=== PATIENT | female | born 1950 | race African-American/Black ===

== ENCOUNTER 2016-04-27 02:15 | Emergency (ER) | payer OTHER, MEDICAID ==
[~2016-04-27] VITALS: Ht 165.1 cm; Wt 59.9 kg
[~2016-04-27 02:15] MED LIST: CYCLOBENZAPRINE10 MG ORAL; IBUPROFEN600 MG ORAL
[2016-04-27] MEDS ORDERED: Ketorolac 30mg Inj IV ONE (02:45)
[2016-04-27 03:03] LABS: MEAN CORPUSCULAR VOLUME 88 FL (80-99); MEAN PLATELET VOLUME 7.7 FL (6.5-10.1); PLATELET COUNT 339 K/UL (150-450); RED BLOOD COUNT 4.26 M/UL (4.20-5.40); RED CELL DISTRIBUTION WIDTH 12.8 % (11.6-14.8); WHITE BLOOD COUNT 15.3 K/UL (4.8-10.8)
[2016-04-27 03:11] VITALS: BP 162/71
[2016-04-27 03:14] LABS: APPEARANCE,URINE CLEAR; KETONES,URINE NEGATIVE (NEGATIVE); LEUKOCYTE ESTERASE ,URINE NEGATIVE (NEGATIVE); NITRITE,URINE NEGATIVE (NEGATIVE); PH,URINE 8 (4.5-8.0); PROTEIN,URINE 1+ (NEGATIVE); UROBILINOGEN,URINE NORMAL MG/DL (0.0-1.0)
[2016-04-27 03:18] LABS: ALANINE AMINOTRANSFERASE 20 U/L (3-33); ALBUMIN/GLOBULIN RATIO 1.3 (1.0-2.7); ANION GAP 21 (5-15); ASPARTATE AMINO TRANSFERASE 26 U/L (5-40); CARBON DIOXIDE 23 mEQ/L (20-30); CHLORIDE 81 mEQ/L (98-107); CREATININE 0.7 mg/dL (0.5-0.9); GLOMERULAR FILTRATION RATE > 60 mL/min (>60); HEMOLYSIS 2; LIPASE 13 U/L (< 60); POTASSIUM 3.6 mEQ/L (3.4-4.9); SODIUM 125 mEQ/L (135-145); TOTAL PROTEIN 7.6 g/dL (6.6-8.7)
[2016-04-27] MEDS ORDERED: Hydromorphone 0.5mg/0.5ml inj IVP ONE ×2 (03:45→04:00)
[2016-04-27] MEDS ORDERED: ACETAMINOPHEN-1 EAC1 ORAL (04:01)
[2016-04-27] MEDS ORDERED: ZOFRAN4 MG ORAL (04:02)
--- NOTE | 2016-04-27 04:02 | Emergency Room Report ---
History of Present Illness General Chief Complaint: Vomiting Source: Patient Present Illness HPI Is a 65-year-old female who had arthroscopic shoulder surgery 24 hours ago. She was discharged home. She took [place] and developed severe nausea and vomiting. She still have shoulder pain. Denies any trauma. No fever or chills. No abdominal pain. No diarrhea. Denies any other complaint. He is 10 out of 10 the Allergies: Coded Allergies: PENICILLINS (Unverified Allergy, Unknown, 10/31/15) SULFA (SULFONAMIDE ANTIBIOTICS) (Unverified Allergy, Unknown, 10/31/15) Uncoded Allergies: PENECILLIN (Allergy, Unknown, 10/31/15) SULFA (Allergy, Unknown, 10/31/15) Patient History Past Medical History: see triage record, old chart reviewed Past Surgical History: other Pertinent Family History: none Social History: Denies: smoking Now: No Immunizations: other Reviewed Nursing Documentation: PMH: Agreed, PSxH: Agreed Nursing Documentation-PMH Hx Asthma: Yes History Of Psychiatric Problem: Yes - DEPRESSION Review of Systems Eye: Denies: blurred vision, eye pain ENT: Denies: ear pain, nose congestion, throat swelling Respiratory: Denies: cough, shortness of breath Cardiovascular: Denies: chest pain, palpitations Gastrointestinal: Denies: abdominal pain, diarrhea, nausea, vomiting Musculoskeletal: Reports: joint pain, Denies: back pain Skin: Denies: rash Neurological: Denies: headache, numbness Endocrine: Denies: increased thirst, increased urine Hematologic/Lymphatic: Denies: easy bruising All Other Systems: negative except mentioned in HPI Physical Exam Vital Signs Date Time Temp Pulse Resp B/P Pulse Ox O2 Delivery O2 Flow Rate FiO2 04/27/16 02:16 98.1 102 16 169/79 96 Room Air vitals with hypertension Sp02 EP Interpretation: reviewed, normal General Appearance: well appearing, no apparent distress, alert Head: normocephalic, atraumatic Eyes: bilateral eye EOMI, bilateral eye PERRL ENT: hearing grossly normal, normal pharynx Neck: full range of motion, supple, no meningismus Respiratory: chest non-tender, lungs clear, normal breath sounds Cardiovascular #1: regular rate, rhythm, no murmur Gastrointestinal: normal bowel sounds, non tender, no mass, no organomegaly, no bruit, non-distended Musculoskeletal: back normal, gait/station normal, other - Left shoulder: Incision site clean. Psychiatric: mood/affect normal Skin: warm/dry Medical Decision Making Diagnostic Impression: Primary Impression: Vomiting Qualified Codes: R11.2 - Nausea with vomiting, unspecified Additional Impression: Shoulder pain, left Qualified Codes: M25.512 - Pain in left shoulder ER Course Patient presents with postop pain and vomiting secondary to narcotic. We'll switch her to a different 1. No evidence of septic joint. Nausea are better control now. We'll discharge home. Last Vital Signs Date Time Temp Pulse Resp B/P Pulse Ox O2 Delivery O2 Flow Rate FiO2 04/27/16 03:49 98.1 04/27/16 03:11 89 16 162/71 96 Room Air Status: improved Condition: Stable Scripts Ondansetron (Zofran) 4 Mg Tablet 4 MG ORAL Q6H Y for Nausea & Vomiting, #20 TAB 0 Refills Prov: ANDREZ CAMARGO M.D. 04/27/16 Acetaminophen With Codeine (T#3) (TYLENOL #3 TAB*) Y Tab 1 TAB ORAL Q8H Y for For Pain, #20 TAB Prov: ANDREZ CAMARGO M.D. 04/27/16 Referrals: [facility],REFERRING (PCP) Additional Instructions: Followup with your in 2-3 days. Keep the appointment. Return if worse. ANDREZ CAMARGO M.D. Apr 27, 2016 04:02
[2016-04-27 04:13] VITALS: BP 169/79
[2016-04-27 04:18] LABS: BACTERIA,URINE OCCASIONAL /HPF; MUCUS,URINE FEW /LPF (NONE/OCC); RBC,URINE 0-2 /HPF (0 - 2); SQUAMOUS EPITHELIAL CELL,UR FEW /LPF (NONE/OCC); WBC,URINE 0-2 /HPF (0 - 2)
[2016-04-27 04:46] VITALS: BP 169/79
[2016-04-27 08:03] LABS: BAND NEUTROPHILS % (MANUAL) 0 % (0-8); BASOPHILS % (MANUAL) 0 % (0-2); EOSINOPHILS % (MANUAL) 0 % (0-3); LYMPHOCYTES % (MANUAL) 6 % (20-45); NEUTROPHILS % (MANUAL) 90 % (45-75); PLATELET ESTIMATE ADEQUATE; PLATELET MORPHOLOGY NORMAL; TOTAL CELLS COUNTED 100
== END 2016-04-27 04:53 | disposition home or self-care (01) ==
LOC: EDBD 02:15 → EMR 02:26
DX: R11.2 Nausea with vomiting, unspecified (principal); M25.512 Pain in left shoulder; J45.909 Unspecified asthma, uncomplicated; F32.9 Major depressive disorder, single episode, unspecified; Z88.0 Allergy status to penicillin; Z88.2 Allergy status to sulfonamides
CPT/HCPCS: 36415; 80053; 81003; 83690; 85007; 85025; 96360; 96374; 96375; 99284; J1170; J1885; J2405

== ENCOUNTER 2017-05-12 13:43 | Emergency (ER) | payer OTHER, MEDICAID ==
[~2017-05-12] VITALS: Ht 165.1 cm; Wt 59.0 kg
[2017-05-12 13:43] VITALS: BP 182/100
[~2017-05-12 13:43] MED LIST changes: +ACETAMINOPHEN-1 EAC1 ORAL; +ZOFRAN4 MG ORAL
[2017-05-12 14:21] LABS: HEMATOCRIT 45.1 % (37.0-47.0); HEMOGLOBIN 14.7 G/DL (12.0-16.0); MEAN CORPUSCULAR VOLUME 90 FL (80-99); PLATELET COUNT 455 K/UL (150-450); RED CELL DISTRIBUTION WIDTH 13.4 % (11.6-14.8); WHITE BLOOD COUNT 11.3 K/UL (4.8-10.8)
[2017-05-12 14:35] LABS: ANION GAP 17 mmol/L (5-15); BLOOD UREA NITROGEN 8 mg/dL (7-18); CALCIUM 9.8 MG/DL (8.5-10.1); CARBON DIOXIDE 24 MMOL/L (21-32); CHLORIDE 92 MMOL/L (98-107); CREATININE 0.9 MG/DL (0.55-1.30); POTASSIUM 3.2 MMOL/L (3.5-5.1); SODIUM 133 MMOL/L (136-145)
[2017-05-12 14:40] LABS: ALANINE AMINOTRANSFERASE 44 U/L (12-78); ALBUMIN 4.6 G/DL (3.4-5.0); ALBUMIN/GLOBULIN RATIO 0.9 (1.0-2.7); ALKALINE PHOSPHATASE 102 U/L (46-116); ASPARTATE AMINO TRANSFERASE 32 U/L (15-37); BILIRUBIN,TOTAL 0.3 MG/DL (0.2-1.0)
[2017-05-12 15:27] LABS: APPEARANCE,URINE SLIGHTLY CLOUDY; BILIRUBIN, URINE NEGATIVE (NEGATIVE); COLOR,URINE PALE YELLOW; GLUCOSE, URINE (UA) 4+ (NEGATIVE); KETONES,URINE 2+ (NEGATIVE); LEUKOCYTE ESTERASE ,URINE NEGATIVE (NEGATIVE); NITRITE,URINE NEGATIVE (NEGATIVE); PH,URINE 7 (4.5-8.0); PROTEIN,URINE 3+ (NEGATIVE); UROBILINOGEN,URINE NORMAL MG/DL (0.0-1.0)
[2017-05-12 15:43] VITALS: BP 144/69
--- NOTE | 2017-05-12 15:55 | Emergency Room Report ---
History of Present Illness General Chief Complaint: Vomiting Source: Patient, EMS Present Illness HPI 66-year-old female presents ED for evaluation. Patient presenting with nausea and vomiting started last night. Notes multiple episodes of vomiting. States she feels dehydrated and weak. She also notes some lower abdominal pain which has been going on and off for the last one month. Left lower quadrant, sharp, 5 /10, nonradiating. Denies dysuria or hematuria. Denies chest pain or shortness of breath. No aggravating or leading factors. Denies any other associated symptoms Allergies: Coded Allergies: PENICILLINS (Unverified Allergy, Unknown, 10/31/15) SULFA (SULFONAMIDE ANTIBIOTICS) (Unverified Allergy, Unknown, 10/31/15) Uncoded Allergies: PENECILLIN (Allergy, Unknown, 10/31/15) SULFA (Allergy, Unknown, 10/31/15) Patient History Past Medical History: asthma Past Surgical History: none Pertinent Family History: none Social History: Denies: smoking, alcohol use, drug use Last Menstrual Period: Post Now: No Immunizations: UTD Reviewed Nursing Documentation: PMH: Agreed, PSxH: Agreed Nursing Documentation-PMH Hx Asthma: Yes Review of Systems All Other Systems: negative except mentioned in HPI Physical Exam Vital Signs Date Time Temp Pulse Resp B/P (MAP) Pulse Ox O2 Delivery O2 Flow Rate FiO2 05/12/17 13:35 104 18 182/100 97 Room Air Sp02 EP Interpretation: reviewed, normal General Appearance: no apparent distress, alert, GCS 15, non-toxic Head: normocephalic, atraumatic Eyes: bilateral eye normal inspection, bilateral eye PERRL ENT: hearing grossly normal, normal pharynx, no angioedema, normal voice Neck: full range of motion, supple/symm/no masses Respiratory: chest non-tender, lungs clear, normal breath sounds, speaking full sentences Cardiovascular #1: regular rate, rhythm, no edema Cardiovascular #2: 2+ carotid (R), 2+ carotid (L), 2+ radial (R), 2+ radial (L) , 2+ dorsalis pedis (R), 2+ dorsalis pedis (L) Gastrointestinal: normal bowel sounds, soft, non-distended, no guarding, no rebound, tenderness - LLQ Rectal: deferred Genitourinary: normal inspection, no CVA tenderness Musculoskeletal: back normal, gait/station normal, normal range of motion, non- tender Neurologic: alert, oriented x3, responsive, motor strength/tone normal, sensory intact, speech normal Psychiatric: judgement/insight normal, memory normal, mood/affect normal, no suicidal/homicidal ideation Reflexes: 3+ bicep (R), 3+ bicep (L), 3+ tricep (R), 3+ tricep (L), 3+ knee (R) , 3+ knee (L) Skin: normal color, no rash, warm/dry, well hydrated Lymphatic: no adenopathy Medical Decision Making Diagnostic Impression: Primary Impression: Diverticulitis ER Course Hospital Course 66-year-old F presents to ED with lower abdominal pain, vomiting Differential diagnoses include: appendicitis, diverticulitis, SBO, gastroenteritis Clinical course 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 After initial history and physical I ordered labs, IV fluids, UA, pain medication and CT scan Labs - no leukocytosis, Hb/Hct stable. electrolytes ok. CT abdomen and pelvis - diverticulitis given that patient appears nontoxic with normal labs and tolerating oral intake I believe that patient be safely discharged with antibiotic prescriptions given cipro/flagyl here. Discussed findings with patient. On reassessment pain is improved. Tolerating by mouth intake I feel this is a highly complex case requiring extensive working including EKG/ Rhythm strip, Xray/CT/US, Blood/urine lab work, repeat exams while in ED, and administration of strong opiates/narcotics for pain control, admission to hospital or close patient follow up. Diagnosis - divertculitis stable and discharged to home with prescription for Cipro and Flagyl, [place], zofran. Followup with PMD. Return to ED if symptoms recur or worsen Labs Test 05/12/17 14:05 05/12/17 15:05 White Blood Count 11.3 K/UL (4.8-10.8) Red Blood Count 5.00 M/UL (4.20-5.40) Hemoglobin 14.7 G/DL (12.0-16.0) Hematocrit 45.1 % (37.0-47.0) Mean Corpuscular Volume 90 FL (80-99) Mean Corpuscular Hemoglobin 29.3 PG (27.0-31.0) Mean Corpuscular Hemoglobin Concent 32.5 G/DL (32.0-36.0) Red Cell Distribution Width 13.4 % (11.6-14.8) Platelet Count 455 K/UL (150-450) Mean Platelet Volume 6.9 FL (6.5-10.1) Neutrophils (%) (Auto) % (45.0-75.0) Lymphocytes (%) (Auto) % (20.0-45.0) Monocytes (%) (Auto) % (1.0-10.0) Eosinophils (%) (Auto) % (0.0-3.0) Basophils (%) (Auto) % (0.0-2.0) Differential Total Cells Counted 100 Neutrophils % (Manual) 94 % (45-75) Lymphocytes % (Manual) 4 % (20-45) Monocytes % (Manual) 2 % (1-10) Eosinophils % (Manual) 0 % (0-3) Basophils % (Manual) 0 % (0-2) Band Neutrophils 0 % (0-8) Platelet Estimate Adequate Platelet Morphology Normal Red Blood Cell Morphology Normal Sodium Level 133 MMOL/L (136-145) Potassium Level 3.2 MMOL/L (3.5-5.1) Chloride Level 92 MMOL/L (98-107) Carbon Dioxide Level 24 MMOL/L (21-32) Anion Gap 17 mmol/L (5-15) Blood Urea Nitrogen 8 mg/dL (7-18) Creatinine 0.9 MG/DL (0.55-1.30) Estimat Glomerular Filtration Rate > 60 mL/min (>60) Glucose Level 231 MG/DL (74-106) Calcium Level 9.8 MG/DL (8.5-10.1) Total Bilirubin 0.3 MG/DL (0.2-1.0) Aspartate Amino Transf (AST/SGOT) 32 U/L (15-37) Alanine Aminotransferase (ALT/SGPT) 44 U/L (12-78) Alkaline Phosphatase 102 U/L (46-116) Total Protein 9.6 G/DL (6.4-8.2) Albumin 4.6 G/DL (3.4-5.0) Globulin 5.0 g/dL Albumin/Globulin Ratio 0.9 (1.0-2.7) Lipase 101 U/L (73-393) Urine Color Pale yellow Urine Appearance Slightly cloudy Urine pH 7 (4.5-8.0) Urine Specific [place] 1.025 (1.005-1.035) Urine Protein 3+ (NEGATIVE) Urine Glucose (UA) 4+ (NEGATIVE) Urine Ketones 2+ (NEGATIVE) Urine Occult Blood 2+ (NEGATIVE) Urine Nitrite Negative (NEGATIVE) Urine Bilirubin Negative (NEGATIVE) Urine Urobilinogen Normal MG/DL (0.0-1.0) Urine Leukocyte Esterase Negative (NEGATIVE) Urine RBC 10-15 /HPF (0 - 2) Urine WBC 0-2 /HPF (0 - 2) Urine Squamous Epithelial Cells Moderate /LPF (NONE/OCC) Urine Bacteria Few /HPF (NONE) Urine Mucus Moderate /LPF (NONE/OCC) CT/MRI/US Diagnostic Results CT/MRI/US Diagnostic Results : Imaging Test Ordered: CT A/P Impression mild sigmoid diverticulitis. no perforation/abscess Last Vital Signs Date Time Temp Pulse Resp B/P (MAP) Pulse Ox O2 Delivery O2 Flow Rate FiO2 05/12/17 13:43 82 18 182/100 97 Room Air Status: improved Disposition: HOME, SELF-CARE Condition: Stable Scripts Hydrocodone Bit/Acetaminophen 5-325* (NORCO 5-325*) 1 Each Tablet 1 TAB ORAL Q6H Y for For Pain, #10 TAB 0 Refills Prov: AMANDA CALVILLO M.D. 05/12/17 Ondansetron Odt* (ZOFRAN ODT*) 4 Mg Tab.rapdis 4 MG ORAL Q6H Y for Nausea & Vomiting, #30 TAB 0 Refills Prov: AMANDA CALVILLO M.D. 05/12/17 Metronidazole* (FLAGYL*) 500 Mg Tablet 500 MG ORAL THREE TIMES A DAY, #21 TAB Prov: AMANDA CALVILLO M.D. 05/12/17 Ciprofloxacin Hcl* (CIPROFLOXACIN HCL*) 500 Mg Tablet 500 MG ORAL Q12H, #14 TAB 0 Refills Prov: AMANDA CALVILLO M.D. 05/12/17 Referrals: [facility]/,REFERRING (PCP) AMANDA CALVILLO M.D. May 12, 2017 15:55
[2017-05-12] MEDS ORDERED: Morphine Sulfate 4mg/ml Inj IVP ONE (17:30)
[2017-05-12] MEDS ORDERED: Ketorolac 30mg Inj IV ONE (17:30)
[2017-05-12 17:43] VITALS: BP 158/70
[2017-05-12] MEDS ORDERED: Ciprofloxacin 500mg tab ORAL ONE (17:45)
[2017-05-12] MEDS ORDERED: metroNIDAZOLE 500mg tab ORAL ONE (17:45)
[2017-05-12] MEDS ORDERED: ADVAIR 250-501 EACH INH (17:48)
[2017-05-12] MEDS ORDERED: PROAIR HFA8.5 GM INH (17:51)
[2017-05-12] MEDS ORDERED: LEFLUNOMIDE10 MG PO (17:52)
[2017-05-12] MEDS ORDERED: METHOTREXATE2.5 MG PO (17:52)
[2017-05-12] MEDS ORDERED: NAPROXEN500 M2 ORAL (17:53)
[2017-05-12] MEDS ORDERED: PERCOCET 5-3251 EACH ORAL (17:57)
[2017-05-12] MEDS ORDERED: OMEPRAZOLE20 M2 ORAL (17:57)
[2017-05-12] MEDS ORDERED: SERTRALINE HCL25 MG ORAL (17:57)
[2017-05-12] MEDS ORDERED: ATORVASTATIN CA20 MG ORAL (17:57)
[2017-05-12] MEDS ORDERED: HYDROCHLOROTHIA25 MG ORAL (17:57)
[2017-05-12] MEDS ORDERED: METRONIDAZOLE500 MG ORAL (18:03)
[2017-05-12] MEDS ORDERED: CIPROFLOXACIN500 M2 ORAL (18:03)
[2017-05-12] MEDS ORDERED: ZOFRAN ODT4 MG ORAL (18:03)
[2017-05-12] MEDS ORDERED: NORCO 5-325 TA1 EACH ORAL (18:03)
[2017-05-12 18:39] VITALS: BP 160/81
--- NOTE | 2017-05-13 10:58 | Diagnostic Imaging Report ---
Clinical Indication: Abdominal pain. Left lower quadrant pain Technique: No oral contrast utilized, per emergency room physician request IV administration nonionic contrast. Venous phase spiral acquisition obtained through the abdomen and pelvis. Multiplanar reconstructions were generated. Total dose length product 485.75 mGycm. CTDIvol(s) 10.14 mGy. Dose reduction achieved using automated exposure control Comparison: none Findings: There is colonic diverticulosis, predominantly in the sigmoid. There is very mild wall thickening of the sigmoid. Minimal fluid is seen in the area, predominantly adjacent to the uterus. No focal extraluminal fluid collections. No extraluminal gas Normal appendix. No small bowel distention. No free or loculated intraperitoneal air or fluid is evident. Distal esophagus, stomach, duodenum are unremarkable. The liver demonstrates a calcification in the tip of the right hepatic lobe. No other focal abnormality is. The gallbladder is incompletely distended, unremarkable. No biliary ductal dilatation. The pancreas, spleen, adrenals, kidneys are unremarkable. Incidental finding of a circumaortic left renal vein. No retroperitoneal or mesenteric mass or adenopathy. No pelvic mass or adenopathy. Uterus contains a few small calcifications, otherwise unremarkable. No adnexal mass. The included lung bases demonstrate small bullae. The bones demonstrate mild degenerative spondylosis changes. Impression: Colonic diverticulosis. Mild sigmoid wall thickening and a very slight amount of adjacent fluid. Indicate very mild sigmoid diverticulitis Small pulmonary bullae, may reflect COPD changes Uterine calcification, probably an old degenerated fibroid Other findings as noted, including granulomatous calcification within the liver, circumaortic left renal vein, degenerative spondylosis This agrees with the preliminary interpretation provided overnight by [facility] teleradiology service. The CT scanner at [facility] is accredited by the [employer] and the scans are performed using protocols designed to limit radiation exposure to as low as reasonably achievable to attain images of sufficient resolution adequate for diagnostic evaluation.
== END 2017-05-12 18:40 | disposition home or self-care (01) ==
LOC: EDBD 13:43 → EMR 14:30
DX: K57.92 Diverticulitis of intestine, part unspecified, without perforation or abscess without bleeding (principal); R11.10 Vomiting, unspecified; J45.909 Unspecified asthma, uncomplicated; Z88.0 Allergy status to penicillin; Z88.2 Allergy status to sulfonamides
CPT/HCPCS: 36415; 74177; 80053; 81003; 83690; 85007; 85025; 96361; 96374; 96375; 99284; J1885; J2270; J2405; Q9967; S0028

== ENCOUNTER 2017-07-25 07:42 | Emergency (ER) | payer MEDICARE, MEDICAID ==
[~2017-07-25] VITALS: Ht 162.6 cm; Wt 52.2 kg
[~2017-07-25 07:42] MED LIST changes: +ADVAIR 250-501 EACH INH; +ATORVASTATIN CA20 MG ORAL; +CIPROFLOXACIN500 M2 ORAL; +HYDROCHLOROTHIA25 MG ORAL; +LEFLUNOMIDE10 MG PO; +METHOTREXATE2.5 MG PO; +METRONIDAZOLE500 MG ORAL; +NAPROXEN500 M2 ORAL; +NORCO 5-325 TA1 EACH ORAL; +OMEPRAZOLE20 M2 ORAL; +PERCOCET 5-3251 EACH ORAL; +PROAIR HFA8.5 GM INH; +SERTRALINE HCL25 MG ORAL; +ZOFRAN ODT4 MG ORAL
[2017-07-25 07:47] VITALS: BP 167/97
[2017-07-25] MEDS ORDERED: Isovue-300 100ml vial INJ PRN (08:00)
[2017-07-25] MEDS ORDERED: Morphine Sulfate 4mg/ml Inj IVP ONE (08:00)
[2017-07-25 08:26] LABS: BASOPHILS % (AUTO) 0.9 % (0.0-2.0); EOSINOPHILS % (AUTO) 0.2 % (0.0-3.0); HEMATOCRIT 38.7 % (37.0-47.0); HEMOGLOBIN 12.2 G/DL (12.0-16.0); LYMPHOCYTES % (AUTO) 15.2 % (20.0-45.0); MEAN CORPUSCULAR VOLUME 92 FL (80-99); MONOCYTES % (AUTO) 4.6 % (1.0-10.0); NEUTROPHILS % (AUTO) 79.1 % (45.0-75.0); PLATELET COUNT 472 K/UL (150-450); RED CELL DISTRIBUTION WIDTH 14.9 % (11.6-14.8); WHITE BLOOD COUNT 10.2 K/UL (4.8-10.8)
[2017-07-25 08:29] LABS: ANION GAP 18 mmol/L (5-15); BLOOD UREA NITROGEN 8 mg/dL (7-18); CALCIUM 9.4 MG/DL (8.5-10.1); CARBON DIOXIDE 22 MMOL/L (21-32); CHLORIDE 100 MMOL/L (98-107); POTASSIUM 2.9 MMOL/L (3.5-5.1); SODIUM 140 MMOL/L (136-145)
[2017-07-25 08:33] LABS: ALANINE AMINOTRANSFERASE 27 U/L (12-78); ALBUMIN 3.9 G/DL (3.4-5.0); ALBUMIN/GLOBULIN RATIO 0.9 (1.0-2.7); ALKALINE PHOSPHATASE 90 U/L (46-116); ASPARTATE AMINO TRANSFERASE 31 U/L (15-37); BILIRUBIN,TOTAL 0.6 MG/DL (0.2-1.0)
[2017-07-25 10:01] VITALS: BP 168/98
[2017-07-25 10:08] LABS: APPEARANCE,URINE CLEAR; BILIRUBIN, URINE NEGATIVE (NEGATIVE); COLOR,URINE PALE YELLOW; GLUCOSE, URINE (UA) 3+ (NEGATIVE); KETONES,URINE 4+ (NEGATIVE); LEUKOCYTE ESTERASE ,URINE NEGATIVE (NEGATIVE); NITRITE,URINE NEGATIVE (NEGATIVE); PH,URINE 6.5 (4.5-8.0); PROTEIN,URINE 2+ (NEGATIVE); UROBILINOGEN,URINE NORMAL MG/DL (0.0-1.0)
--- NOTE | 2017-07-25 11:05 | Diagnostic Imaging Report ---
Clinical Indication: Lower left abdominal pain since yesterday morning after meal, nausea, vomiting, diarrhea Technique: No oral contrast utilized, per emergency room physician request IV administration nonionic contrast. Venous phase spiral acquisition obtained through the abdomen and pelvis. Multiplanar reconstructions were generated. Total dose length product 427.15 mGycm. CTDIvol(s) 9.23 mGy. Dose reduction achieved using automated exposure control Comparison: 05/22/2017 Findings: Lack of enteric contrast limits assessment of the GI tract. The appendix is normal. There is colonic diverticulosis. No evidence of diverticulitis. Trace fluid is seen within the pelvis, similar to the prior exam. Previously reported sigmoid wall thickening is less evident currently. Congestion of the sigmoid mesenteric vessels is less striking than previously. A single prominent small bowel loop is seen in the left upper quadrant. No small bowel distention otherwise. The distal esophagus, stomach, and duodenum are unremarkable. No free intraperitoneal air. The gallbladder is unremarkable. The liver is slightly hypoattenuating. No focal abnormality. The bile ducts are unremarkable. The pancreas, spleen, adrenals, kidneys are all unremarkable. No mesenteric or retroperitoneal mass or adenopathy. Is a circumaortic left renal vein again demonstrated. No pelvic mass or adenopathy. Uterus contains a calcification. The ovaries are unremarkable. The bladder is distended. The included lung bases demonstrate posterior atelectasis and possibly consolidation, not evident previously. Hyperinflation and a few small bullae are demonstrated. There is interstitial septal prominence which may be slightly increased from the prior study. The bones are unremarkable Impression: Limited assessment of the GI tract due to lack of enteric contrast administration Small amount of free fluid adjacent to the uterus, appearing similar to the previous exam. Sigmoid diverticulosis. No definite evidence of diverticulitis. Note that sigmoid wall thickening and mesenteric congestion previously demonstrated appears less striking on the current exam Nonspecific prominent left upper quadrant small bowel loop. No evidence of small bowel obstruction Mild fatty liver Distended bladder Bilateral basilar pulmonary atelectasis and possibly some consolidation Evidence of bullous COPD Old granulomatous calcification within the liver, circumaortic left renal vein again incidentally noted The CT scanner at [facility] is accredited by the [employer] and the scans are performed using protocols designed to limit radiation exposure to as low as reasonably achievable to attain images of sufficient resolution adequate for diagnostic evaluation.
--- NOTE | 2017-07-25 12:38 | Emergency Room Report ---
History of Present Illness General Chief Complaint: Abdominal Pain Source: Patient, EMS Present Illness HPI Patient presents fairly histrionic in acute pain Complains of diffuse pain Reports one episode of diarrhea today Denies any fevers denies any chest pain or shortness of breath Patient had increased nausea denies any vomiting Patient was here recently with similar abdominal pain with findings of mild colitis Patient reports that her symptoms did not significantly improve Denies any blood in the stool denies any trauma Allergies: Coded Allergies: PENICILLINS (Unverified Allergy, Unknown, 10/31/15) SULFA (SULFONAMIDE ANTIBIOTICS) (Unverified Allergy, Unknown, 10/31/15) Patient History Past Medical History: see triage record Pertinent Family History: none Reviewed Nursing Documentation: PMH: Agreed; PSxH: Agreed Nursing Documentation-PMH Past Medical History: No History, Except For Hx Hypertension: Yes Hx Asthma: Yes Review of Systems All Other Systems: negative except mentioned in HPI Physical Exam Vital Signs Date Time Temp Pulse Resp B/P (MAP) Pulse Ox O2 Delivery O2 Flow Rate FiO2 07/25/17 07:37 97.8 115 14 170/107 98 Room Air 97.9 Sp02 EP Interpretation: reviewed, normal General Appearance: mild distress - In acute pain, histrionic Head: normocephalic, atraumatic Eyes: bilateral eye PERRL, bilateral eye EOMI ENT: hearing grossly normal, normal pharynx, TMs + canals normal, uvula midline Neck: full range of motion, supple, no meningismus, no bony tend Respiratory: lungs clear, normal breath sounds, no rhonchi, no respiratory distress, no retraction, no accessory muscle use Cardiovascular #1: normal peripheral pulses, regular rate, rhythm, no edema, no gallop, no JVD, no murmur Gastrointestinal: normal bowel sounds, soft, no mass, no organomegaly, non- distended, no guarding, no hernia, no pulsatile mass, no rebound, tenderness - Soft exam on palpation however patient subjectively points diffusely throughout the abdomen for the discomfort Genitourinary: no CVA tenderness Musculoskeletal: normal inspection Neurologic: oriented x3, responsive, graphics programmer III-XII nml as tested, motor strength/ tone normal, sensory intact Psychiatric: mood/affect normal Skin: normal color, no rash, warm/dry, palpation normal Lymphatic: normal inspection, no adenopathy Medical Decision Making Diagnostic Impression: Primary Impression: Colitis Additional Impression: Abdominal pain ER Course With the history exam and presentation, multiple differentials considered, including but not limited to appendicitis, gastritis, cholecystitis, diverticulitis Patient has had recent imaging approximately 2 months ago However given her acute discomfort and presentation repeat examination was required Shows similar findings of thickening around the sigmoid colon Blood work reveals low potassium And patient stable for further inpatient care Labs Test 07/25/17 07:47 07/25/17 09:56 White Blood Count 10.2 K/UL (4.8-10.8) Red Blood Count 4.20 M/UL (4.20-5.40) Hemoglobin 12.2 G/DL (12.0-16.0) Hematocrit 38.7 % (37.0-47.0) Mean Corpuscular Volume 92 FL (80-99) Mean Corpuscular Hemoglobin 29.1 PG (27.0-31.0) Mean Corpuscular Hemoglobin Concent 31.5 G/DL (32.0-36.0) Red Cell Distribution Width 14.9 % (11.6-14.8) Platelet Count 472 K/UL (150-450) Mean Platelet Volume 7.1 FL (6.5-10.1) Neutrophils (%) (Auto) 79.1 % (45.0-75.0) Lymphocytes (%) (Auto) 15.2 % (20.0-45.0) Monocytes (%) (Auto) 4.6 % (1.0-10.0) Eosinophils (%) (Auto) 0.2 % (0.0-3.0) Basophils (%) (Auto) 0.9 % (0.0-2.0) Sodium Level 140 MMOL/L (136-145) Potassium Level 2.9 MMOL/L (3.5-5.1) Chloride Level 100 MMOL/L (98-107) Carbon Dioxide Level 22 MMOL/L (21-32) Anion Gap 18 mmol/L (5-15) Blood Urea Nitrogen 8 mg/dL (7-18) Creatinine 1.0 MG/DL (0.55-1.30) Estimat Glomerular Filtration Rate > 60 mL/min (>60) Glucose Level 183 MG/DL (74-106) Calcium Level 9.4 MG/DL (8.5-10.1) Total Bilirubin 0.6 MG/DL (0.2-1.0) Aspartate Amino Transf (AST/SGOT) 31 U/L (15-37) Alanine Aminotransferase (ALT/SGPT) 27 U/L (12-78) Alkaline Phosphatase 90 U/L (46-116) Total Protein 8.3 G/DL (6.4-8.2) Albumin 3.9 G/DL (3.4-5.0) Globulin 4.4 g/dL Albumin/Globulin Ratio 0.9 (1.0-2.7) Lipase 81 U/L (73-393) Urine Color Pale yellow Urine Appearance Clear Urine pH 6.5 (4.5-8.0) Urine Specific [place] 1.015 (1.005-1.035) Urine Protein 2+ (NEGATIVE) Urine Glucose (UA) 3+ (NEGATIVE) Urine Ketones 4+ (NEGATIVE) Urine Occult Blood Negative (NEGATIVE) Urine Nitrite Negative (NEGATIVE) Urine Bilirubin Negative (NEGATIVE) Urine Urobilinogen Normal MG/DL (0.0-1.0) Urine Leukocyte Esterase Negative (NEGATIVE) Urine RBC 0-2 /HPF (0 - 2) Urine WBC 0-2 /HPF (0 - 2) Urine Squamous Epithelial Cells Occasional /LPF Urine Bacteria Few /HPF (NONE) Rhythm Strip Diag. Results EP Interpretation: yes Rate: 67 Rhythm: NSR, no PVC's, no ectopy CT/MRI/US Diagnostic Results CT/MRI/US Diagnostic Results : Impression CT abdomen pelvis:Thickening in the sigmoid colon no obvious diverticulitis Last Vital Signs Date Time Temp Pulse Resp B/P (MAP) Pulse Ox O2 Delivery O2 Flow Rate FiO2 07/25/17 10:01 98.5 98 13 168/98 99 Room Air 98.5 Status: improved Disposition: XFER SHT-TRM HOSP Condition: Serious Referrals: NON PHYSICIAN (PCP) Jennifer Cole DO July 25, 2017 12:38
[2017-07-25 12:44] VITALS: BP 142/76
[2017-07-25 14:40] VITALS: BP 124/64
== END 2017-07-25 14:45 | disposition short-term general hospital (02) ==
LOC: EDBD 07:42 → EMR 09:00
DX: K52.9 Noninfective gastroenteritis and colitis, unspecified (principal); I10 Essential (primary) hypertension; J45.909 Unspecified asthma, uncomplicated; K76.0 Fatty (change of) liver, not elsewhere classified; Z88.0 Allergy status to penicillin; Z88.2 Allergy status to sulfonamides
CPT/HCPCS: 36415; 74177; 80053; 81003; 83690; 85025; 96374; 96375; 99285; J2270; J2405; Q9967; J8499